=== PATIENT | female | born 1980 | race Caucasian/White ===

== ENCOUNTER → 2021-03-13 07:52 | Outpatient (CLI) | payer OTHER, SELFPAY ==
[2021-03-13 10:15] LABS: COVID19 -Nasal RAPID Negative (Negative)
== END ==
PROVIDERS: Visit Provider Physician Assistant
DX: Z01.812 Encounter for preprocedural laboratory examination (principal); Z20.822 Contact with and (suspected) exposure to COVID-19
CPT/HCPCS: 87635

== ENCOUNTER 2021-03-15 08:56 | Day surgery (SDC) | payer OTHER, SELFPAY ==
[2021-03-14 14:23] VITALS: BMI 33.6
[2021-03-15] VITALS (8 sets, daily range): BP systolic 102–127; BP diastolic 53–83; PULSE 80–91; RESP 11–18; TEMP 36.3–36.6; O2SAT 98–100; BMI 33.6
[2021-03-15] MEDS: LACTATED RINGERS 1,000 ML 100 ML IV ×2 (09:48→13:59)
--- NOTE | 2021-03-15 11:06 | PM.PREOP ---
Pre-operative Note COVID-19 COVID-19 status: Negative Result date/Date tested (Pos, Neg/Pending): 03/13/21 Interval Note History & Physical reviewed/Exam performed by Physician: Yes Changes to H&P: No
--- NOTE | 2021-03-15 11:06 | PM.OP.1 ---
Operative Date/Time/Diagnoses Date of procedure: 03/15/21 Time of procedure: 11:12 Pre-op diagnosis: Right hallux valgus with bunion pain Post-op diagnosis: same Procedure & Clinicians Procedure: Right bunionectomy with first metatarsocueniform arthrodesis Right hallux proximal phalangeal osteotomy Same procedure as scheduled: Yes Indications: Painful bunion to the right foot. Conservative measures failed to alleviate her pain and she wished to have surgical intervention at this time. We spoke of the risks, potential complications, as well as expected outcomes. Consent was signed, no contraindication to the procedures at this time. Surgeon: Hannah Phillips Click Yes if Unassisted: Yes Anesthesia Type: General Operative Notes Closure Type: primary Specimen(s): none sent Applied: cast(s) (Posterior splint well-padded, plaster, right foot and ankle) and implant(s) ([place] compression plate, 4.0 cannulated screw, 3.5 screws (4), JAWS Nitinol 8x8 staple) Estimated Blood Loss (mL): 20 Blood products transfused: none Tourniquet time (min): 120 Procedure in detail: The patient was brought to the operating room and placed on the operating table in the supine position. The tourniquet was placed about the right thigh. Well padded, appropriately aligned. After induction of general anesthesia the right foot and ankle were prepped and draped in the usual aseptic manner. The tourniquet was inflated. Incision was made over the right 1st metatarsal cuneiform joint extending to the 1st metatarsophalangeal joint. The incision was deepened through subcutaneous tissues being careful to identify and retract all vital neurovascular structures. All bleeders were cauterized and ligated as necessary. A capsulotomy was performed to the 1st MTPJ exposing the enlarged medial eminence. The saw was used to resect the medial eminence and smooth any sharp edges of the bone. Attention was then directed to the 1st metatarsocuneiform joint which was entered. The joint was taken down and a saw was used to resect the base of the 1st metatarsal and the distal leading edge of the medial cuneiform. This was done at a slight angle on the medial cuneiform to allow for closure of the intermetatarsal angle. It was found that the edge of the 1st metatarsal base laterally was too prominent to allow for full closure so the proximal lateral edge of the 1st metatarsal was also resected using a rongeur. The area was then able to be closed and the alignment was good. Fishscaling performed on either side of the former MC joint. The area was irrigated with copious amounts normal sterile saline. With the aid of C-arm after a plate was trialed, a guidewire was placed for temporary fixation through the 1st metatarsocuneiform joint. I was able to translate the 1st metatarsal slightly medially and first metatarsal head plantarly to allow for better correction. It was noted to make sure that there was not a significant amount of plantar flexion distally. Following standard AO technique, 4.0 cannulated lag screw was placed from distal lateral to proximal medial. The fusion site showed good compression and closure. The plate was then attached with the corresponding 3.5 screws in the normal AO technique. This was reviewed on C-arm and noted to be strong and in appropriate alignment. Once this was loaded it would appear that there did not need to be a distal metatarsal osteotomy. I did want to go ahead and had whole little more room between her 1st and 2nd toes so that she did not have as much rubbing in that interspace so I elected to perform the phalangeal osteotomy of the hallux. After dissection into the hallux proximal phalanx, a saw was used to make 2 angulated cuts with the apex of this at the medial aspect and lateral edge kept intact. This wedge of bone was removed and very gently the osteotomy was closed allowing for better angulation of the tip of the hallux. The area was irrigated with normal saline. After measurement and compression was placed against the osteotomy, a drill was used on either side of it and a bone staple was placed and tamped in. This was checked on C-arm and found to be in good alignment and closure. Once again after irrigation, the medial 1st MTP redundant capsule was resected and closed down in alignment with Ticron and Vicryl. The tourniquet was deflated and a prompt hyperemic response was seen in the foot. Deep and subcutaneous closure was closed performed with Vicryl and nylon to the skin. The foot was dressed with a lightly compressive sterile dressing and posterior splint in alignment. She did not bring her post op boot as she was unable to get it yet from her insurance. She was then transferred to PACU with vital signs stable. Following a period of postoperative monitoring the patient will be discharged home on written and oral postoperative instructions including keeping the dressing dry and intact, avoiding ambulation to the foot, icing and elevating the foot when seated at home. DVT prevention techniques have been reviewed. Complications: none Post-operative Condition: stable Disposition: PACU Plan for aftercare: Following a period of postoperative monitoring, the patient be discharged home on written and oral postoperative instructions including keeping the dressing dry and intact, no ambulation on the surgical foot, icing and elevating the foot when seated home. DVT prevention techniques have been reviewed. For the 1st postoperative visit the dressing will be changed and close to the 4th postoperative week we will likely take 1st postoperative x-rays
[2021-03-15] MEDS: CEFAZOLIN 1 GM VIAL 2 GM IV (11:27)
--- NOTE | 2021-03-15 11:41 | SUR.OPER ---
Supine on padded OR bed, head on pillow, arms secured on padded arm boards at <90 degrees abduction, legs uncrossed, safety belt at thigh, tape over blanket over left lower leg, right leg gel bump under thigh draped free.
[2021-03-15] MEDS: BUPIVACAINE 0.5% (PF) VIAL 30 ML INJ (11:51)
[2021-03-15] MEDS: fentaNYL 100 MCG/2 ML INJ IV (14:34)
[2021-03-15] MEDS: OXYCODONE IR 5 MG TABLET PO (14:44)
[2021-03-15] MEDS: ACETAMINOPHEN 325 MG TABLET 650 MG PO (14:44)
== END 2021-03-15 13:15 | disposition home or self-care (01) ==
PROVIDERS: PCP Internal Medicine Cardiovascular Disease; Referring Provider Podiatrist; Visit Provider Podiatrist
PROC: 0QBN0ZZ Excision of Right Metatarsal, Open Approach (ICD-10-PCS; CPT 28292; principal; 2021-03-15 11:15)
DX: M20.11 Hallux valgus (acquired), right foot (principal); M79.671 Pain in right foot; M21.851 Other specified acquired deformities of right thigh
CPT/HCPCS: 28297; 81025; J0690; J1100; J2405; J2704; J3010